=== PATIENT | male | born 1955 | race African-American/Black ===

== ENCOUNTER 2020-12-25 18:38 | Emergency (ER) | payer MEDICAID ==
[~2020-12-25] VITALS: Ht 182.9 cm; Wt 100.0 kg
[2020-12-25] MEDS ORDERED: LACTATED RINGERS 1,000 ML IV SCH (20:15)
[2020-12-25 22:24] VITALS: BP 125/61
== END 2020-12-25 23:05 | disposition home or self-care (01) ==
LOC: ER 18:38
DX: R42 Dizziness and giddiness (principal); I10 Essential (primary) hypertension
CPT/HCPCS: 72100; 73630; 99284